=== PATIENT | male | born 1985 ===

== ENCOUNTER 2025-01-29 21:04 | Inpatient (IN) | payer MEDICAID ==
[~2025-01-29] VITALS: Ht 172.7 cm; Wt 73.0 kg
[2025-01-29 22:37] LABS: COVID AG,FIA SOURCE NASAL SWAB
[2025-01-29 22:41] LABS: APPEARANCE,URINE CLEAR (CLEAR); BILIRUBIN,URINE NEGATIVE (NEGATIVE); COLOR,URINE LIGHT YELLOW (YELLOW); GLUCOSE, URINE (UA) NEGATIVE (NEGATIVE); KETONES,URINE NEGATIVE (NEGATIVE); LEUKOCYTE ESTERASE ,URINE NEGATIVE (NEGATIVE); NITRATE,URINE NEGATIVE (NEGATIVE); OCCULT BLOOD,URINE NEGATIVE (NEGATIVE); PH,URINE 7.5 (5.0-8.0); PH,URINE DRUG SCREEN 7.5 (5.0-8.0); PROTEIN,URINE NEGATIVE (NEGATIVE); SPECIFIC GRAVITIY, URINE 1.011 (1.003-1.030); UROBILINOGEN,URINE <=1.0 mg/dL (<=1.0)
[2025-01-29 22:47] LABS: AMPHET/METH SCREEN,URINE NEGATIVE (NEGATIVE); BARBITURATE SCREEN, URINE NEGATIVE (NEGATIVE); BENZODIAZEPINES SCREEN,URINE NEGATIVE (NEGATIVE); CANNABINOID SCREEN,URINE NEGATIVE (NEGATIVE); COCAINE SCREEN,URINE NEGATIVE (NEGATIVE); METHADONE SCREEN, URINE POSITIVE (NEGATIVE); OPIATE SCREEN,URINE NEGATIVE (NEGATIVE); PHENCYCLIDINE SCREEN,URINE NEGATIVE (NEGATIVE)
[2025-01-29 22:48] LABS: ALCOHOL, URINE DRUG SCREEN NEGATIVE (NEGATIVE)
[2025-01-29 22:58] LABS: SARS-COV2 (COVID) ANTIGEN,FIA Negative (Negative)
[2025-01-29 23:03] LABS: BASOPHILS % (AUTO) 0.8 % (0.0-2.0); EOSINOPHILS % (AUTO) 6.3 % (1.0-6.0); HEMATOCRIT 39.6 % (41-53); HEMOGLOBIN 13.3 g/dL (13.5-17.5); LYMPHOCYTES # (AUTO) 1.6 K/uL (1.0-4.8); LYMPHOCYTES % (AUTO) 33.2 % (22.0-44.0); MEAN CORPUSCULAR HEMOGLOBIN 29.2 pg (26.0-34.0); MEAN CORPUSCULAR HGB CONC 33.6 G/dL (31.0-37.0); MEAN CORPUSCULAR VOLUME 87 fL (80-100); MONOCYTES # (AUTO) 0.6 K/uL (0.1-1.0); MONOCYTES % (AUTO) 11.4 % (2.0-9.0); NEUTROPHILS # (AUTO) 2.4 K/uL (1.8-7.7); NEUTROPHILS % (AUTO) 48.3 % (40.0-70.0); PLATELET COUNT (AUTO) 164 K/uL (150-450); RED BLOOD CELL COUNT(AUTO) 4.55 MIL/uL (4.50-5.90); RED CELL DISTRIBUTION WIDTH 13.4 % (11.5-14.5); WHITE BLOOD COUNT (AUTO) 4.9 K/uL (4.5-11.0)
[2025-01-29 23:15] LABS: ANION GAP 8 mmol/L (8-16); CALCIUM, TOTAL 8.5 mg/dL (8.8-10.5); CARBON DIOXIDE 32 mmol/L (22-29); CHLORIDE 104 mmol/L (98-107); CREATININE 0.94 mg/dL (0.60-1.30); GLOMERULAR FILTR. RATE CALC > 60 mL/min (>60); GLUCOSE,RANDOM 86 mg/dL (70-110); SODIUM SERUM 144 mmol/L (136-145); UREA NITROGEN, BLOOD 17 mg/dL (7-18)
[2025-01-29 23:17] LABS: ALCOHOL, BLOOD (SERUM) < 3 mg/dL (0-10)
[2025-01-29 23:39] LABS: B-TYPE NATRIURETIC PEPTIDE < 5 pg/mL (0-100)
[2025-01-29 23:46] LABS: LACTIC ACID 1.3 mmol/L (0.4-2.0)
[2025-01-30] MEDS ORDERED: haloperidoL 5 MG TABLET PO PRN (01:00)
[2025-01-30 06:46] VITALS: O2SAT 100
[2025-01-30] MEDS: QUEtiapine FUMARATE 100 MG TABLET PO SCH ×2 (08:12→21:12)
[2025-01-30] MEDS: BusPIRone HCL 5 MG TABLET PO SCH (09:34)
[2025-01-30] MEDS ORDERED: DOCUSATE SODIUM 100 MG CAPSULE PO PRN (12:45)
[2025-01-30] MEDS ORDERED: IPRATROPIUM BROMIDE 0.5 MG/2.5 ML NEB SOLUTION NEB PRN (12:45)
[2025-01-30] MEDS ORDERED: BENZOCAINE/MENTHOL [CEPACOL] LOZENGE PO PRN (12:45)
[2025-01-30] MEDS ORDERED: ALBUTEROL SULFATE 2.5 MG/0.5 ML NEB SOLUTION NEB PRN (12:45)
[2025-01-30] MEDS ORDERED: MAG HYDROX/ALUMINUM HYD/SIMETH ES 30 ML SUSPENSION UDCUP PO PRN (12:45)
[2025-01-30] MEDS ORDERED: MAGNESIUM HYDROXIDE SUSPENSION 30 ML UDCUP PO PRN (12:45)
[2025-01-30] MEDS ORDERED: ACETAMINOPHEN 325 MG TABLET PO PRN (12:45)
[2025-01-30] MEDS ORDERED: PETROLATUM,WHITE 28 GM JELLY TP PRN (12:45)
[2025-01-30] MEDS ORDERED: OMEPRAZOLE 20 MG CAPSULE PO PRN (12:45)
[2025-01-30] MEDS ORDERED: ONDANSETRON 4 MG TABLET PO PRN (12:45)
[2025-01-30] MEDS ORDERED: LOPERAMIDE HCL 2 MG CAPSULE PO PRN (12:45)
[2025-01-30] MEDS ORDERED: ALBUTEROL SULFATE HFA 90 MCG/PUFF 8 GM INHALER IH PRN (12:45)
[2025-01-30] MEDS ORDERED: CloNIDine HCL 0.1 MG TABLET PO PRN (12:45)
[2025-01-30] MEDS ORDERED: IBUPROFEN 600 MG TABLET PO PRN (12:45)
[2025-01-30] MEDS ORDERED: BACITRACIN 28 GM OINTMENT TP PRN (12:45)
[2025-01-30 12:47] VITALS: BP 103/76; PULSE 98; RESP 18; TEMP 97.6; O2SAT 100
[2025-01-30] MEDS ORDERED: PNEUMOCOCCAL VACCINE POLYVALENT 0.5 ML SYRINGE [PPSV23] IM. ONE (14:15)
[2025-01-30 20:05] VITALS: BP 111/75; PULSE 94; RESP 17; TEMP 98.2; O2SAT 99
[2025-01-30] MEDS: MELATONIN 5 MG TABLET PO SCH (21:12)
[2025-01-30 21:23] VITALS: BP 106/70; PULSE 91; RESP 16; TEMP 98.2; O2SAT 95
[2025-01-31 08:04] VITALS: BP 133/86; PULSE 93; RESP 18; TEMP 98.2; O2SAT 97
[2025-01-31 20:03] VITALS: BP 137/81; PULSE 95; RESP 18; TEMP 98.3; O2SAT 97
[2025-01-31] MEDS ORDERED: QUEtiapine FUMARATE 200 MG TABLET PO SCH (21:00)
[2025-01-31] MEDS: QUEtiapine FUMARATE 100 MG TABLET PO SCH (21:21)
[2025-02-01] MEDS: QUEtiapine FUMARATE 100 MG TABLET PO SCH (08:05)
[2025-02-01 08:27] VITALS: BP 118/86; PULSE 100; RESP 18; TEMP 98.4; O2SAT 96
[2025-02-01] MEDS ORDERED: QUEtiapine FUMARATE 200 MG TABLET PO SCH (09:00)
[2025-02-01 20:22] VITALS: BP 128/81; PULSE 96; RESP 17; TEMP 97.7; O2SAT 96
[2025-02-02 08:35] VITALS: BP 127/79; PULSE 85; RESP 18; TEMP 98; O2SAT 96
[2025-02-02 20:41] VITALS: RESP 18
[2025-02-03 08:41] VITALS: BP 125/73; PULSE 90; RESP 18; TEMP 98.2; O2SAT 96
[2025-02-03 20:04] VITALS: RESP 16
[2025-02-03] MEDS: ZOLPIDEM TARTRATE 10 MG TABLET PO PRN (20:32)
[2025-02-03] MEDS: LORazepam 2 MG TABLET PO PRN (20:32)
[2025-02-04 09:24] VITALS: BP 124/78; PULSE 93; RESP 17; TEMP 98.6; O2SAT 97
[2025-02-04 20:14] VITALS: RESP 16
[2025-02-05 08:14] VITALS: BP 124/79; PULSE 99; RESP 18; TEMP 97.7; O2SAT 96
[2025-02-05 20:05] VITALS: RESP 18
[2025-02-06 08:42] VITALS: BP 132/79; PULSE 116; RESP 18; TEMP 98; O2SAT 97
[2025-02-06 09:35] VITALS: PULSE 78
[2025-02-06] MEDS ORDERED: BUSP5TAB20 PO (12:20)
[2025-02-06] MEDS ORDERED: QUET50TA PO (12:20)
[2025-02-06] MEDS ORDERED: QUET100T PO (12:21)
== END 2025-02-06 15:43 | DRG 750 ==
LOC: EMS 21:04 → B3A 01-30 10:16
PROVIDERS: ADMIT Psychiatry & Neurology Psychiatry; ATTEND Psychiatry & Neurology Psychiatry
PROC: GZHZZZZ Group Psychotherapy (ICD-10-PCS; principal; 2025-01-31)
PROC: GZ52ZZZ Individual Psychotherapy, Cognitive (ICD-10-PCS; 2025-01-31)
DX: F25.1 Schizoaffective disorder, depressive type (principal); G40.909 Epilepsy, unspecified, not intractable, without status epilepticus; D64.9 Anemia, unspecified; J44.9 Chronic obstructive pulmonary disease, unspecified; F11.20 Opioid dependence, uncomplicated; I10 Essential (primary) hypertension; Z20.822 Contact with and (suspected) exposure to COVID-19; F41.9 Anxiety disorder, unspecified; G47.00 Insomnia, unspecified; K59.00 Constipation, unspecified; Z79.899 Other long term (current) drug therapy; Z65.3 Problems related to other legal circumstances; Z87.01 Personal history of pneumonia (recurrent); Z93.1 Gastrostomy status
CPT/HCPCS: 80048; 80307; 81003; 83605; 83880; 85025; 97116; 97162; 99285; G0480